=== PATIENT | male | born 1955 | race Caucasian/White ===

== ENCOUNTER 2017-11-25 03:42 | Emergency (ER) | payer OTHER ==
[~2017-11-25] VITALS: Ht 175.3 cm; Wt 99.8 kg
[~2017-11-25 03:42] MED LIST: LEVE500T9 PO; NIFE30TA2 PO
--- NOTE | 2017-11-25 03:43 | NUR ---
TO BED 3 [facility] C/O SEIZURE WITNESSED BY , PT AAOX2 NO ACUTE DISTRESS NOTED,R MIRIAM EVEN AND UNLABORED. PLACE PT ON CARDIAC MONITORING, CONTINUOUS POX, O2@2L/NC. SKIN WARM, NONDIAPHORETIC. PUPILS PERRLA, PT ABLE TO MOVE ALL EXTREMITIES WELL WITH BILATERAL EQUAL APPRAISER PERSONAL PROPERTY. (+) ORAL TRAUMA, (+) URINARY INCONTINENCE. PLACE PT ON SEIZURE PRECAUTION WITH PADDED SIDERAILS. CALL [facility] WITHIN REACH. ER MD AT BEDSIDE TO EVAL PT WITH ORDERS RECEIVED. WILL CARRY OUT ORDER.
--- NOTE | 2017-11-25 03:55 | NUR ---
URINE SAMPLE COLLECTED AND SENT TO LAB.
[2017-11-25] MEDS ORDERED: LEVETIRACETAM (500MG) 500 MG in IV NS 0.9% 100 ML IV ONE (04:00)
[2017-11-25] MEDS ORDERED: IV NS 0.9% 500 ML BAG IV ONE (04:00)
--- NOTE | 2017-11-25 04:10 | NUR ---
PT AT BEDSIDE
[2017-11-25] MEDS ORDERED: LEVETIRACETAM (500MG) 500 MG/5 ML VIAL IV ONE (04:18)
[2017-11-25 04:26] LABS: BASOPHILS % (AUTO) 0.3 % (0.0-2.0); EOSINOPHILS % (AUTO) 1.5 % (0.0-6.0); HEMATOCRIT 52 % (39-51); HEMOGLOBIN 17.5 g/dL (13.5-17.5); LYMPHOCYTES # (AUTO) 2.4 /CMM (0.8-4.8); LYMPHOCYTES % (AUTO) 30.9 % (20.0-44.0); MEAN CORPUSCULAR HEMOGLOBIN 33 PG (26.0-33.0); MEAN CORPUSCULAR HGB CONC 33 g/dl (31.0-36.0); MEAN CORPUSCULAR VOLUME 100 fL (80-96); MONOCYTES # (AUTO) 0.7 /CMM (0.1-1.30); MONOCYTES % (AUTO) 8.7 % (2.0-12.0); NEUTROPHILS # (AUTO) 4.6 /CMM (1.8-8.9); NEUTROPHILS % (AUTO) 58.6 % (43.0-81.0); PLATELET COUNT (AUTO) 151 /CMM (150-450); RDW COEFFICIENT OF VARIATION 14.6 (11.5-15.0); RED BLOOD CELL COUNT(AUTO) 5.25 MIL/uL (4.5-6.0); WHITE BLOOD COUNT (AUTO) 7.8 K/uL (4.3-11.0)
--- NOTE | 2017-11-25 04:26 | NUR ---
MARLINE [phone]. CALL WHEN PT DISCHARGED
[2017-11-25 04:40] LABS: ALCOHOL, BLOOD < 3 mg/dL (0-0); CALCIUM, SERUM 8.9 mg/dL (8.5-10.1); CARBON DIOXIDE 20 mmol/L (21-32); CHLORIDE 103 mmol/L (98-107); CREATININE 1.4 mg/dL (0.6-1.3); GLUCOSE 196 mg/dL (74-106); POTASSIUM 3.2 mmol/L (3.5-5.1); SODIUM SERUM 142 mmol/L (136-145); UREA NITROGEN, BLOOD 13 mg/dL (7-18)
[2017-11-25] MEDS ORDERED: POTASSIUM CHLORIDE 20 MEQ TAB.PRT.SR PO ONE ×2 (05:30→05:44)
[2017-11-25 06:49] VITALS: BP 161/98
== END 2017-11-25 06:50 | disposition home or self-care (01) ==
LOC: ER 03:43
DX: F10.239 Alcohol dependence with withdrawal, unspecified (principal); G40.909 Epilepsy, unspecified, not intractable, without status epilepticus; I10 Essential (primary) hypertension; F17.200 Nicotine dependence, unspecified, uncomplicated; Y90.0 Blood alcohol level of less than 20 mg/100 ml
CPT/HCPCS: 36415; 80048; 80305; 85025; 96365; 99284; A4606; G0480; J1953 ×2; J7030 ×2; J7040; Z7610

== ENCOUNTER 2018-05-06 04:24 | Emergency (ER) | payer OTHER ==
[~2018-05-06] VITALS: Ht 188 cm; Wt 104.3 kg
[2018-05-06] MEDS ORDERED: LEVETIRACETAM (500MG) 500 MG in IV NS 0.9% 100 ML IV ONE (04:30)
[2018-05-06] MEDS ORDERED: IV NS 0.9% 1,000 ML BAG IV ONE (04:30)
--- NOTE | 2018-05-06 04:35 | NUR ---
PT BIBA D/T ADULT SEIZUIRE, PLACED ON ER BED 5, SEEN BY ER JOSE GORDON DONE, ORDERS ENTERED AND CARRIED OUT. WILL CONT TO MONITOR.
[2018-05-06] MEDS ORDERED: LORAZEPAM INJ 2 MG/ML VIAL ONE (04:40)
[2018-05-06] MEDS ORDERED: LEVETIRACETAM (500MG) 500 MG/5 ML VIAL IV ONE (04:53)
[2018-05-06 04:54] LABS: BASOPHILS % (AUTO) 0.5 % (0.0-2.0); CALCIUM, SERUM 8.7 mg/dL (8.5-10.1); CARBON DIOXIDE 21 mmol/L (21-32); CHLORIDE 104 mmol/L (98-107); CREATININE 1.3 mg/dL (0.6-1.3); EOSINOPHILS % (AUTO) 2.3 % (0.0-6.0); GLUCOSE 265 mg/dL (74-106); HEMATOCRIT 49 % (39-51); HEMOGLOBIN 16.9 g/dL (13.5-17.5); LYMPHOCYTES # (AUTO) 2.8 /CMM (0.8-4.8); LYMPHOCYTES % (AUTO) 37.6 % (20.0-44.0); MEAN CORPUSCULAR HGB CONC 35 g/dl (31.0-36.0); MEAN CORPUSCULAR VOLUME 95 fL (80-96); MONOCYTES # (AUTO) 0.7 /CMM (0.1-1.30); MONOCYTES % (AUTO) 9.3 % (2.0-12.0); NEUTROPHILS # (AUTO) 3.7 /CMM (1.8-8.9); NEUTROPHILS % (AUTO) 50.3 % (43.0-81.0); PLATELET COUNT (AUTO) 122 /CMM (150-450); POTASSIUM 3.7 mmol/L (3.5-5.1); RED BLOOD CELL COUNT(AUTO) 5.16 MIL/uL (4.5-6.0); SODIUM SERUM 142 mmol/L (136-145); UREA NITROGEN, BLOOD 15 mg/dL (7-18); WHITE BLOOD COUNT (AUTO) 7.3 K/uL (4.3-11.0)
[2018-05-06] MEDS ORDERED: LORAZEPAM INJ 2 MG/ML VIAL IM ONE (05:00)
[2018-05-06 05:01] LABS: ALANINE AMINOTRANSFERASE 53 U/L (12-78); ALBUMIN 3.8 g/dL (3.4-5.0); ALCOHOL, BLOOD < 3 mg/dL (0-0); ALKALINE PHOSPHATASE 124 U/L (46-116); ASPARTATE AMINOTRANSFERASE 26 U/L (15-37); BILIRUBIN,DIRECT 0.2 mg/dL (0.0-0.2); BILIRUBIN,TOTAL 0.6 mg/dL (0.2-1.0); TOTAL PROTEIN, SERUM 7.8 g/dL (6.4-8.2)
--- NOTE | 2018-05-06 06:01 | NUR ---
Heena pretty in [facility] - 05/06/18 at [address] GALINDO ON PHONE WITH [facility]
--- NOTE | 2018-05-06 06:10 | NUR ---
SPOKE WITH KEN FROM [facility]
[2018-05-06] MEDS ORDERED: LEVETIRACETAM (250 MG) 250 MG TABLET PO ONE ×3 (06:30→07:00)
[2018-05-06] MEDS ORDERED: CLONIDINE HCL 0.1 MG TABLET PO ONE (07:00)
[2018-05-06] MEDS ORDERED: CLONIDINE HCL 0.1 MG TABLET ONE (07:06)
--- NOTE | 2018-05-06 07:14 | NUR ---
Patient discharged to home in stable condition. instructed to go [facility] to refill his kepra rx, by the hospitalist at [facility]. Written and verbal after care instructions given. Patient verbalizes understanding of instruction.
[2018-05-06 07:19] VITALS: BP 165/74
== END 2018-05-06 07:21 | disposition home or self-care (01) ==
LOC: ER 04:25
DX: G40.909 Epilepsy, unspecified, not intractable, without status epilepticus (principal); I10 Essential (primary) hypertension; F10.10 Alcohol abuse, uncomplicated; F17.200 Nicotine dependence, unspecified, uncomplicated; Y90.0 Blood alcohol level of less than 20 mg/100 ml
CPT/HCPCS: 36415; 71045-TC; 80048-TC; 80076-TC; 85025-TC; 85730-TC; G0480; J1953; J2060; J7030

== ENCOUNTER 2024-10-28 05:48 | Emergency (ER) | payer OTHER ==
[~2024-10-28] VITALS: Ht 175.3 cm; Wt 83.9 kg
[2024-10-28 06:59] LABS: CALCIUM, SERUM 9.4 mg/dL (8.5-10.1); CREATININE 1.2 mg/dL (0.6-1.3); SODIUM SERUM 140 mmol/L (136-145); UREA NITROGEN, BLOOD 22 mg/dL (7-18)
[2024-10-28 07:08] LABS: PLATELET COUNT (AUTO) 148 K/uL (150-450); RED BLOOD CELL COUNT(AUTO) 5.45 MIL/uL (4.5-6.0); RED CELL DISTRIBUTION WIDTH 14.5 % (11.5-15.0); WHITE BLOOD COUNT (AUTO) 8.4 K/uL (4.3-11.0)
[2024-10-28 07:30] LABS: LACTIC ACID 2.1 mmol/L (0.4-2.0)
[2024-10-28] MEDS: IV NS 0.9% 500 ML BAG IV ONE (08:07)
[2024-10-28 08:36] VITALS: BP 130/87; TEMP 98.5; O2SAT 98
== END 2024-10-28 08:37 | disposition home or self-care (01) ==
LOC: ER 05:51
DX: G40.909 Epilepsy, unspecified, not intractable, without status epilepticus (principal); G45.9 Transient cerebral ischemic attack, unspecified; F17.200 Nicotine dependence, unspecified, uncomplicated; I10 Essential (primary) hypertension; Z79.899 Other long term (current) drug therapy; W06.XXXA Fall from bed, initial encounter; Y93.89 Activity, other specified; Y92.89 Other specified places as the place of occurrence of the external cause; Y99.8 Other external cause status
CPT/HCPCS: 99284; 70450; 93005; 85025; 80048; 83605; 36415; 82962; J7040